=== PATIENT | female | born 1995 | race Caucasian/White ===

== ENCOUNTER 2016-12-22 00:32 | Emergency (ER) | payer OTHER ==
[2016-12-22 00:49] VITALS: RESP 18; TEMP 97.9
[2016-12-22 01:59] LABS: Amorphous Sediment,Urine Occasional /hpf; Appearance,Urine Cloudy (Clear); Bilirubin,Urine Negative (Negative); Glucose,Urine (UA) Negative (Negative); Ketones,Urine Negative (Negative); Leukocyte Esterase,Urine Small (Negative); Mucus,Urine Rare /hpf; Nitrite,Urine Negative (Negative); PH, Urine 6.5 (5.0-8.0); Particle Count 15127; Protein,Urine Negative (Negative); RBC,Urine 92 /hpf (0-5); Specific Gravity,Urine 1.017 (1.001-1.035); Squamous Epithelial Cell,Urine <1 /hpf (0-4); UA Billing (MACRO vs. MICRO) MICRO; Urobilinogen,Urine <2.0 mg/dL (<2.0)
[2016-12-22] MEDS ORDERED: Rhogam IMMUNE GLOBULIN 1,500 UNIT/1 ML IM ONE (02:14)
--- NOTE | 2016-12-22 02:17 | ED ---
Female Urogenital HPI - General Chief complaint: Vaginal Bleeding Stated complaint: poss miscarriage,8wks Time Seen by Provider: 12/22/16 01:21 Source: patient, RN notes reviewed Mode of arrival: ambulatory Limitations: no limitations - History of Present Illness Initial comments: Patient is a 21-year-old female presents to the emergency room for evaluation of vaginal bleeding. Patient states she is about 8 weeks . Patient is . Patient states that she began with spotting about 2 days ago. Patient states she's been passing clots throughout the day today. Patient states that in bilateral lower abdominal cramping. Patient denies any nausea or vomiting. Patient states she's gone through 1 pad today. Patient denies fevers or chills. Patient denies chest pain or shortness of breath. Patient denies headache or dizziness. Patient states she does not have an OB appointment until the end of the month. - Related Data Home Medications Medication Instructions Recorded Confirmed No Known Home Medications [No 12/22/16 12/22/16 Known Home Medications] Allergies Allergy/AdvReac Type Severity Reaction Status Date / Time aloe vera Allergy Rash/Hives Verified 12/22/16 00:49 amoxicillin Allergy Rash/Hives Verified 12/22/16 00:49 latex Allergy Rash/Hives Verified 12/22/16 00:49 mint Allergy Rash/Hives Uncoded 12/22/16 00:49 Review of Systems ROS Statement: Those systems with pertinent positive or pertinent negative responses have been documented in the HPI. ROS Other: All systems not noted in ROS Statement are negative. Past Medical History Past Medical History: Asthma, GERD/Reflux Additional Past Medical History / Comment(s): anxiety History of Any Multi-Drug Resistant Organisms: None Reported Past Surgical History: Adenoidectomy, Ear Surgery Additional Past Surgical History / Comment(s): Kidney biopsy; Tubes in ears Past Anesthesia/Blood Transfusion Reactions: No Reported Reaction Past Psychological History: Anxiety, Bipolar Smoking Status: Never smoker Past Alcohol Use History: Occasional Past Drug Use History: None Reported - Past Family History Mother Family Medical History: Cancer (Breast), Thyroid Disorder General Exam - General Exam Comments Initial Comments: laying in exam room, no acute distress. Limitations: no limitations General appearance: alert, in no apparent distress Head exam: Present: atraumatic, normocephalic, normal inspection Eye exam: Present: normal appearance ENT exam: Present: normal exam Neck exam: Present: normal inspection Respiratory exam: Present: normal lung sounds bilaterally. Absent: respiratory distress Cardiovascular Exam: Present: regular rate, normal rhythm, normal heart sounds GI/Abdominal exam: Present: soft, tenderness (RLQ/LLQ), normal bowel sounds. Absent: distended, guarding, rebound, rigid External exam: Present: normal external exam Speculum exam: Present: vaginal bleeding Extremities exam: Present: normal inspection Back exam: Present: normal inspection Neurological exam: Present: alert, oriented X3, CN II-XII intact, normal gait Psychiatric exam: Present: normal affect, normal mood Skin exam: Present: warm, dry, intact, normal color. Absent: rash Course Vital Signs 12/22/16 12/22/16 00:46 03:49 Temperature 97.9 F Pulse Rate 93 71 Respiratory 18 18 Rate Blood Pressure 131/75 121/64 O2 Sat by Pulse 100 Oximetry Medical Decision Making - Medical Decision Making Patient is a 21-year-old female since emergency room for evaluation of vaginal bleeding. Patient is . Serum beta-hCG 555. Ultrasound shows no intrauterine . Patient advised to return in 48 hours for repeat serum beta-hCG. Patient's blood type is O negative. Patient was given RhoGAM. Patient advised to follow-up with [employer] WORK[employer]. Patient states she understands everything that was discussed with her. Return parameters discussed. Case discussed with Dr. Licea. - Lab Data Lab Results 12/22/16 12/22/16 12/22/16 Range/Units 01:37 01:44 01:44 HCG, Quant 555.7 mIU/mL Urine Color Yellow Urine Appearance Cloudy H (Clear) Urine pH 6.5 (5.0-8.0) Ur Specific [place] 1.017 (1.001-1.035) Urine Protein Negative (Negative) Urine Glucose (UA) Negative (Negative) Urine Ketones Negative (Negative) Urine Blood Moderate H (Negative) Urine Nitrite Negative (Negative) Urine Bilirubin Negative (Negative) Urine Urobilinogen <2.0 (<2.0) mg/dL Ur Leukocyte Esterase Small H (Negative) Urine RBC 92 H (0-5) /hpf Ur Squamous Epith Cells <1 (0-4) /hpf Amorphous Sediment Occasional H (None) /hpf Urine Mucus Rare H (None) /hpf Blood Type O Negative Blood Type Recheck No Antibody Screen NEGATIVE - Radiology Data Radiology results: report reviewed, image reviewed Disposition Clinical Impression: Threatened Disposition: HOME SELF-CARE Condition: Good Instructions: Threatened Miscarriage (ED) Additional Instructions: Please return in 48 hours for repeat serum beta-hCG. Please follow-up with OB/ CONFERENCE AND EVENT ORGANISER. Refrain from heavy lifting or sexual intercourse for the next 7 days. If any new symptom arises or symptoms worsen, return to ER as soon as possible. Referrals: Yogi Thornton MD [Primary Care Provider] - 1-2 days Josey Darby DO [Doctor of Osteopathic Medicine] - 1-2 days Time of Disposition: 03:30
--- NOTE | 2016-12-22 03:25 | US ---
EXAM: US Pelvis Complete, Transabdominal CLINICAL HISTORY: Pain TECHNIQUE: Real-time transabdominal pelvic ultrasound (complete) with image documentation. COMPARISON: No relevant prior studies available. FINDINGS: Uterus/cervix: The uterus measures about 8.1 x 4.1 x 4.9 cm. Normal endometrial stripe thickness. No myometrial mass. Right ovary: Right ovary measures about 3.5 x 1.1 x 2.6 cm. Normal blood flow. Left ovary: Left ovary measures about 3 x 1.2 x 1.9 cm. Normal blood flow. Free fluid: No free fluid. Bladder: Unremarkable as visualized. Wall is normal thickness for degree of distention. IMPRESSION: Normal-appearing uterus and ovaries. No intrauterine .
[2016-12-22 03:53] VITALS: BP 121/64; PULSE 71
== END 2016-12-22 04:08 | disposition home or self-care (01) ==
LOC: EC 00:32
DX: O20.0 Threatened abortion (principal); Z88.0 Allergy status to penicillin; Z91.040 Latex allergy status; Z91.018 Allergy to other foods; Z3A.08 8 weeks gestation of pregnancy
CPT/HCPCS: 36415; 86900; 86901; 86850; 81001; 84702; 76801; 99284; 96372; 90384; J2791

== ENCOUNTER → 2016-12-23 | Outpatient (CLI) | payer OTHER | END | disposition home or self-care (01) | LOC: LABWHC1 13:40 | PROVIDERS: ATTEND Physician Assistant | DX: O20.0 Threatened abortion (principal); Z3A.00 Weeks of gestation of pregnancy not specified | CPT/HCPCS: 36415; 84702 ==

== ENCOUNTER 2017-02-08 06:30 | Emergency (ER) | payer OTHER ==
[2017-02-08 06:39] VITALS: RESP 18
[2017-02-08] MEDS ORDERED: SODIUM CHLORIDE 0.9% 1,000 ML IV STA (07:06)
[2017-02-08] MEDS ORDERED: ONDANSETRON 4 MG/2 ML VIAL IVP STA (07:06)
--- NOTE | 2017-02-08 07:06 | ED ---
Nausea/Vomiting/Diarrhea HPI - General Source: patient Mode of arrival: ambulatory Limitations: no limitations <Dalia Bernstein - Last Filed: 02/08/17 07:09> <Johnny Lam - Last Filed: 02/08/17 09:17> - General Chief complaint: Nausea/Vomiting/Diarrhea Stated complaint: vomiting,7 wks Time Seen by Provider: 02/08/17 06:41 - History of Present Illness Initial comments: [age] years old female, she is she thinks she is about 6 weeks complaining about intractable nausea and vomiting, abdominal pain, abdominal cramps in the lower back pain. This is her third . She denies any vaginal bleeding any vaginal spotting that she been she had some chills. Denies any headaches no Neck stiffness or chest pain or shortness of breath does complain about abdominal pain no frequency urgency dysuria. She denies any vaginal bleeding or spotting (Dalia Bernstein) - Related Data Home Medications Medication Instructions Recorded Confirmed Albuterol Inhaler [Ventolin Hfa 2 puff INHALATION RT-Q6H PRN 02/08/17 02/08/17 Inhaler] Pnv,Calcium 72/Iron/Folic Acid 1 tab PO DAILY 02/08/17 02/08/17 [ Plus Tablet] Previous Rx's Medication Instructions Recorded Ondansetron [Zofran] 4 mg PO Q8HR PRN #5 tab 02/08/17 Allergies Allergy/AdvReac Type Severity Reaction Status Date / Time aloe vera Allergy Rash/Hives Verified 02/08/17 08:01 amoxicillin Allergy Rash/Hives Verified 02/08/17 08:01 latex Allergy Rash/Hives Verified 02/08/17 08:01 mint Allergy Rash/Hives Uncoded 02/08/17 06:39 Review of Systems ROS Other: All systems not noted in ROS Statement are negative. <Dalia Bernstein - Last Filed: 02/08/17 07:09> ROS Other: All systems not noted in ROS Statement are negative. <Johnny Lam - Last Filed: 02/08/17 09:17> ROS Statement: Those systems with pertinent positive or pertinent negative responses have been documented in the HPI. Past Medical History Past Medical History: Asthma, GERD/Reflux Additional Past Medical History / Comment(s): anxiety History of Any Multi-Drug Resistant Organisms: None Reported Past Surgical History: Adenoidectomy, Ear Surgery Additional Past Surgical History / Comment(s): Kidney biopsy; Tubes in ears Past Anesthesia/Blood Transfusion Reactions: No Reported Reaction Past Psychological History: Anxiety, Bipolar Smoking Status: Never smoker Past Alcohol Use History: Occasional Past Drug Use History: None Reported - Past Family History Mother Family Medical History: Cancer (Breast), Thyroid Disorder <Dalia Bernstein - Last Filed: 02/08/17 07:09> General Exam Limitations: no limitations <Dalia Bernstein - Last Filed: 02/08/17 07:09> <Johnny Lam - Last Filed: 02/08/17 09:17> - General Exam Comments Initial Comments: General: The patient is awake and alert, in moderate distress Skin: Skin is warm and dry and no rashes or lesions are noted. Eye: Pupils are equal, round and reactive to light, extra-ocular movements are intact; there is normal conjunctiva bilaterally. Ears, nose, mouth and throat: There are moist mucous membranes and no oral lesions. Neck: The neck is supple, there is no tenderness or JVD. Cardiovascular: There is a regular rate and rhythm. No murmur, rub or gallop is appreciated. Respiratory: To auscultation bilateral, no wheezing no rhonchi no distress respiratory jacobsen noticed Gastrointestinal: Mildly tender in the epigastric area and left upper quadrant area Back: There is no tenderness to palpation in the midline. There is no obvious deformity. Musculoskeletal: Normal ROM, no tenderness, There is no pedal edema. There is no calf tenderness or swelling. No cords were appreciated. Neurological: CN II-XII intact, Cranial nerves III through XII are intact. There are no obvious motor or sensory deficits. Coordination appears grossly intact. Speech is normal. Psychiatric: Cooperative, appropriate mood & affect, normal judgment. (Dalia Bernstein) Course <Dalia Bernstein - Last Filed: 02/08/17 07:09> <Johnny Lam - Last Filed: 02/08/17 09:17> Vital Signs 02/08/17 02/08/17 02/08/17 06:34 08:39 08:41 Temperature 97.8 F 98.6 F Pulse Rate 90 76 Respiratory 18 18 Rate Blood Pressure 114/80 103/52 O2 Sat by Pulse 97 90 L Oximetry Patient be endorsed to morning shift after 7 AM (Dalia Bernstein) Medical Decision Making - Lab Data Result diagrams: 02/08/17 06:52 02/08/17 06:52 <Johnny Lam - Last Filed: 02/08/17 09:17> - Lab Data Lab Results 02/08/17 02/08/17 02/08/17 Range/Units 06:52 06:52 08:29 WBC 8.9 (3.8-10.6) k/uL RBC 4.46 (3.80-5.40) m/uL Hgb 13.9 (11.4-16.0) gm/dL Hct 38.9 (34.0-46.0) % MCV 87.1 (80.0-100.0) fL MCH 31.1 (25.0-35.0) pg MCHC 35.7 (31.0-37.0) g/dL RDW 13.6 (11.5-15.5) % Plt Count 269 (150-450) k/uL Neutrophils % 63 % Lymphocytes % 27 % Monocytes % 6 % Eosinophils % 2 % Basophils % 0 % Neutrophils # 5.6 (1.3-7.7) k/uL Lymphocytes # 2.4 (1.0-4.8) k/uL Monocytes # 0.6 (0-1.0) k/uL Eosinophils # 0.2 (0-0.7) k/uL Basophils # 0.0 (0-0.2) k/uL Sodium 140 (137-145) mmol/L Potassium 4.3 (3.5-5.1) mmol/L Chloride 106 (98-107) mmol/L Carbon Dioxide 23 (22-30) mmol/L Anion Gap 11 mmol/L BUN 7 (7-17) mg/dL Creatinine 0.60 (0.52-1.04) mg/dL Est GFR (MDRD) Af Amer >60 (>60 ml/min/1.73 sqM) Est GFR (MDRD) Non-Af >60 (>60 ml/min/1.73 sqM) Glucose 87 (74-99) mg/dL Calcium 9.3 (8.4-10.2) mg/dL Total Bilirubin 0.6 (0.2-1.3) mg/dL AST 12 L (14-36) U/L ALT 25 (9-52) U/L Alkaline Phosphatase 88 (38-126) U/L Total Protein 6.9 (6.3-8.2) g/dL Albumin 4.1 (3.5-5.0) g/dL Amylase 59 (30-110) U/L Lipase 55 (23-300) U/L Urine Color Light Yellow Urine Appearance Clear (Clear) Urine pH 6.5 (5.0-8.0) Ur Specific [place] 1.004 (1.001-1.035) Urine Protein Negative (Negative) Urine Glucose (UA) Negative (Negative) Urine Ketones Negative (Negative) Urine Blood Negative (Negative) Urine Nitrite Negative (Negative) Urine Bilirubin Negative (Negative) Urine Urobilinogen <2.0 (<2.0) mg/dL Ur Leukocyte Esterase Small H (Negative) Urine RBC 1 (0-5) /hpf Urine WBC 2 (0-5) /hpf Ur Squamous Epith Cells 1 (0-4) /hpf Urine Bacteria Occasional H (None) /hpf Urine Mucus Rare H (None) /hpf Urine HCG, Qual (Not Detectd) 02/08/17 Range/Units 08:29 WBC (3.8-10.6) k/uL RBC (3.80-5.40) m/uL Hgb (11.4-16.0) gm/dL Hct (34.0-46.0) % MCV (80.0-100.0) fL MCH (25.0-35.0) pg MCHC (31.0-37.0) g/dL RDW (11.5-15.5) % Plt Count (150-450) k/uL Neutrophils % % Lymphocytes % % Monocytes % % Eosinophils % % Basophils % % Neutrophils # (1.3-7.7) k/uL Lymphocytes # (1.0-4.8) k/uL Monocytes # (0-1.0) k/uL Eosinophils # (0-0.7) k/uL Basophils # (0-0.2) k/uL Sodium (137-145) mmol/L Potassium (3.5-5.1) mmol/L Chloride (98-107) mmol/L Carbon Dioxide (22-30) mmol/L Anion Gap mmol/L BUN (7-17) mg/dL Creatinine (0.52-1.04) mg/dL Est GFR (MDRD) Af Amer (>60 ml/min/1.73 sqM) Est GFR (MDRD) Non-Af (>60 ml/min/1.73 sqM) Glucose (74-99) mg/dL Calcium (8.4-10.2) mg/dL Total Bilirubin (0.2-1.3) mg/dL AST (14-36) U/L ALT (9-52) U/L Alkaline Phosphatase (38-126) U/L Total Protein (6.3-8.2) g/dL Albumin (3.5-5.0) g/dL Amylase (30-110) U/L Lipase (23-300) U/L Urine Color Urine Appearance (Clear) Urine pH (5.0-8.0) Ur Specific [place] (1.001-1.035) Urine Protein (Negative) Urine Glucose (UA) (Negative) Urine Ketones (Negative) Urine Blood (Negative) Urine Nitrite (Negative) Urine Bilirubin (Negative) Urine Urobilinogen (<2.0) mg/dL Ur Leukocyte Esterase (Negative) Urine RBC (0-5) /hpf Urine WBC (0-5) /hpf Ur Squamous Epith Cells (0-4) /hpf Urine Bacteria (None) /hpf Urine Mucus (None) /hpf Urine HCG, Qual Detected (Not Detectd) Disposition <Dalia Bernstein - Last Filed: 02/08/17 07:09> <Johnny Lam - Last Filed: 02/08/17 09:17> Clinical Impression: Hyperemesis Disposition: HOME SELF-CARE Condition: Good Instructions: Hyperemesis Gravidarum (ED) Prescriptions: Ondansetron [Zofran] 4 mg PO Q8HR PRN #5 tab PRN Reason: Nausea Referrals: Yogi Thornton MD [Primary Care Provider] - 1-2 days
[2017-02-08] MEDS ORDERED: FAMOTIDINE 20 MG/2 ML VIAL IV STA (07:07)
[2017-02-08 07:28] LABS: Lymphocytes # (A) 2.4 k/uL (1.0-4.8); Monocytes % (A) 6 %; RDW 13.6 % (11.5-15.5)
[2017-02-08 07:49] LABS: ALT 25 U/L (9-52); AST 12 U/L (14-36); Alkaline Phosphatase 88 U/L (38-126); Amylase 59 U/L (30-110); Anion Gap 11 mmol/L; Blood Urea Nitrogen 7 mg/dL (7-17); Calcium 9.3 mg/dL (8.4-10.2); Carbon Dioxide 23 mmol/L (22-30); Chloride 106 mmol/L (98-107); Glucose 87 mg/dL (74-99); Non-African American GFR(MDRD) >60 (>60 ml/min/1.73 sqM); Potassium 4.3 mmol/L (3.5-5.1); Sodium 140 mmol/L (137-145); Total Bilirubin 0.6 mg/dL (0.2-1.3); Total Protein 6.9 g/dL (6.3-8.2)
[2017-02-08] MEDS ORDERED: DEXTROSE 5%-0.9% NACL 1,000 ML IV SCH (08:00)
[2017-02-08 08:08] LABS: CH 31.1; CHCM 35.8; HDW 2.98; Luc % (Auto) 2; Mean Platelet Volume 7.9; WBC (Perox) 8.62
[2017-02-08 08:11] LABS: RBC 4.46 m/uL (3.80-5.40); WBC 8.9 k/uL (3.8-10.6)
[2017-02-08 08:12] LABS: HCT 38.9 % (34.0-46.0); HGB 13.9 gm/dL (11.4-16.0); MCV 87.1 fL (80.0-100.0)
[2017-02-08 08:13] LABS: MCH 31.1 pg (25.0-35.0)
[2017-02-08 08:14] LABS: MCHC 35.7 g/dL (31.0-37.0)
[2017-02-08 08:15] LABS: Neutrophils % (A) 63 %
[2017-02-08 08:16] LABS: Basophils % (A) 0 %; Eosinophils % (A) 2 %; Lymphocytes % (A) 27 %
[2017-02-08 08:17] LABS: Eosinophils # (A) 0.2 k/uL (0-0.7); Monocytes # (A) 0.6 k/uL (0-1.0); Neutrophils # (A) 5.6 k/uL (1.3-7.7)
--- NOTE | 2017-02-08 08:18 | US ---
EXAMINATION TYPE: US abdomen complete DATE OF EXAM: 02/08/2017 COMPARISON: NONE CLINICAL HISTORY: Pain. Nausea/vomiting EXAM MEASUREMENTS: Liver Length: 13.7 cm Gallbladder Wall: 0.2 cm CBD: 0.4 cm Spleen: 10.8 cm Right Kidney: 8.6 x 5.1 x 5.5 cm Left Kidney: 10.1 x 6.0 x 5.2 cm Pancreas: Obscured by bowel gas Liver: Scanned intercostally, appears homogeneous Gallbladder: wnl Evidence for sonographic Gispon's sign: no CBD: wnl Spleen: Measures 13.7 cm. Right Kidney: No hydronephrosis or masses seen Left Kidney: No hydronephrosis or masses seen Upper IVC: Obscured by overlying bowel gas Abd Aorta: Obscured by overlying bowel gas Essentially normal exam The liver is homogenous. The intrahepatic portion of the IVC and proximal abdominal aorta are within normal limits. There is no evidence of cholelithiasis. Common bile duct is unremarkable. The visu alized portions of the pancreas are homogenous. The spleen is unremarkable although prominent in siz e. Kidneys are symmetric and free of hydronephrosis. No renal lesions are seen. IMPRESSION: 1. No sonographic evidence of cholelithiasis or cholecystitis. 2. No evidence of hydronephrosis or nephrolithiasis. 3. Prominent size of the spleen approaching criteria for splenomegaly. 4. Partially obscured visualization of the IVC and aorta.
[2017-02-08] MEDS ORDERED: METOCLOPRAMIDE 5 MG/ML 2 ML VIAL IVP STA (08:35)
[2017-02-08 08:41] VITALS: BP 103/52; PULSE 76; TEMP 98.6
[2017-02-08 08:51] LABS: Appearance,Urine Clear (Clear); Bacteria,Urine Occasional /hpf; Bilirubin,Urine Negative (Negative); Glucose,Urine (UA) Negative (Negative); Ketones,Urine Negative (Negative); Leukocyte Esterase,Urine Small (Negative); Mucus,Urine Rare /hpf; Nitrite,Urine Negative (Negative); PH, Urine 6.5 (5.0-8.0); Particle Count 4579; Protein,Urine Negative (Negative); RBC,Urine 1 /hpf (0-5); Specific Gravity,Urine 1.004 (1.001-1.035); Squamous Epithelial Cell,Urine 1 /hpf (0-4); UA Billing (MACRO vs. MICRO) MICRO; Urobilinogen,Urine <2.0 mg/dL (<2.0); WBC,Urine 2 /hpf (0-5)
== END 2017-02-08 09:29 | disposition home or self-care (01) ==
LOC: EC 06:30
DX: O21.9 Vomiting of pregnancy, unspecified (principal); O99.89 Other specified diseases and conditions complicating pregnancy, childbirth and the puerperium; M54.5 Low back pain; R10.9 Unspecified abdominal pain; R68.83 Chills (without fever); Z79.899 Other long term (current) drug therapy; Z88.0 Allergy status to penicillin; Z91.018 Allergy to other foods; Z91.040 Latex allergy status; Z91.048 Other nonmedicinal substance allergy status; Z3A.01 Less than 8 weeks gestation of pregnancy
CPT/HCPCS: 99284; 96374; 96375 ×2; 96361 ×2; 36415; 80053; 82150; 83690; 85025; 81001; 81025; 84702; 76700; J2765; J2405

== ENCOUNTER 2017-03-16 14:24 | Emergency (ER) | payer OTHER ==
[2017-03-16 14:28] VITALS: RESP 18; TEMP 98.1
[2017-03-16] MEDS ORDERED: SODIUM CHLORIDE 0.9% 1,000 ML IV ONE (14:43)
[2017-03-16] MEDS ORDERED: PROMETHAZINE INJ 25 MG in SODIUM CHLORIDE 0.9% 50 ML IVPB STA (14:43)
--- NOTE | 2017-03-16 14:55 | ED ---
General Adult HPI - General Chief complaint: Syncope Stated complaint: syncope Time Seen by Provider: 03/16/17 14:28 Source: patient, EMS Mode of arrival: EMS Limitations: no limitations - History of Present Illness Initial comments: This is a 22-year-old female at 12 weeks estimated gestational age presents to the department for a fall and likely syncopal event. The patient states that she was at work and she bent over to pick something up off the floor and then all of a sudden just remembers waking up on the floor. This was not witnessed. She is unsure how long she was on the ground for. She states that she did feel lightheaded prior to this happening. The patient has been dealing with hyperemesis gravidarum and is currently on Phenergan and Zofran at home. She states that she has 18 episodes of emesis a day and has been fainting approximately 3 times a week during her first trimester. Her EXERCISE TEACHER has been giving her IV fluids while she goes into the office. She has not required any admission for this. The patient does admit to some abdominal pain and cramping however she states that this is been going on in her EXERCISE TEACHER is aware and has diagnosed her with a right-sided ovarian cyst. She denies any vaginal bleeding but does have a little bit of some discharge for which she stated she is being treated for a yeast infection by her EXERCISE TEACHER. These symptoms have not changed. She denies any shortness of breath or chest pain. She did feel little bit of palpitations after she woke up on the floor however this has resolved. She denies any headache. She does feel a bit nauseated however has not vomited since the fall. No other complaints. - Related Data Home Medications Medication Instructions Recorded Confirmed Albuterol Inhaler [Ventolin Hfa 2 puff INHALATION RT-Q6H PRN 02/08/17 03/16/17 Inhaler] Pnv,Calcium 72/Iron/Folic Acid 1 tab PO HS 02/08/17 03/16/17 [ Plus Tablet] Ondansetron [Zofran ODT] 4 mg PO Q8HR PRN 03/16/17 03/16/17 Promethazine Suppository 25 mg RECTAL Q6H PRN 03/16/17 03/16/17 [Phenergan] Allergies Allergy/AdvReac Type Severity Reaction Status Date / Time aloe vera Allergy Rash/Hives Verified 03/16/17 14:45 amoxicillin Allergy Rash/Hives Verified 03/16/17 14:45 latex Allergy Rash/Hives Verified 03/16/17 14:45 mint Allergy Rash/Hives Uncoded 03/16/17 14:28 Review of Systems ROS Statement: Those systems with pertinent positive or pertinent negative responses have been documented in the HPI. ROS Other: All systems not noted in ROS Statement are negative. Past Medical History Past Medical History: Asthma, GERD/Reflux Additional Past Medical History / Comment(s): anxiety History of Any Multi-Drug Resistant Organisms: None Reported Past Surgical History: Adenoidectomy, Ear Surgery Additional Past Surgical History / Comment(s): Kidney biopsy; Tubes in ears Past Anesthesia/Blood Transfusion Reactions: No Reported Reaction Past Psychological History: Anxiety, Bipolar Smoking Status: Never smoker Past Alcohol Use History: Occasional Past Drug Use History: None Reported - Past Family History Mother Family Medical History: Cancer (Breast), Thyroid Disorder General Exam - General Exam Comments Initial Comments: Constitutional: Awake alert Appears comfortable Head: Normocephalic atraumatic Eyes: no conjunctival injection No scleral icterus EOMI Neck: No JVD Supple Heart: Regular rate rhythm normal S1-S2 no murmurs Lungs: Clear to auscultation bilaterally No wheezing No rales Abdomen: Soft nondistended nontender Extremities: Non edematous DP pulses intact Radial pulses intact Neuro: A&Ox3 No focal neurologic deficits Psych: Appropriate mood and affect Limitations: no limitations Course Vital Signs 03/16/17 03/16/17 14:25 15:28 Temperature 98.1 F Pulse Rate 100 94 Respiratory 18 18 Rate Blood Pressure 139/79 127/62 O2 Sat by Pulse 98 98 Oximetry EKG Findings - EKG Comments: EKG Findings:: EKG showing normal sinus rhythm with a rate of 97. No abnormal ST segment changes or T-wave inversions. QTC is 421. Other intervals are normal. No ectopy. Medical Decision Making - Medical Decision Making This is a 22-year-old female presents emergency department for suspected syncopal event. EKG was reviewed and unremarkable. Blood work is also unremarkable. The patient has been having multiple episodes of vomiting and likely was dehydrated. She was given fluids and Phenergan and had improvement in her symptoms. She stated that she would want to go home. She is close follow-up with her EXERCISE TEACHER. Told that she can return at any time should worsening or changing symptoms. All questions were answered. - Lab Data Result diagrams: 03/16/17 14:35 03/16/17 14:35 Lab Results 03/16/17 03/16/17 03/16/17 Range/Units 14:35 14:35 15:22 WBC 9.3 (3.8-10.6) k/uL RBC 4.37 (3.80-5.40) m/uL Hgb 13.7 (11.4-16.0) gm/dL Hct 39.7 (34.0-46.0) % MCV 90.7 (80.0-100.0) fL MCH 31.3 (25.0-35.0) pg MCHC 34.5 (31.0-37.0) g/dL RDW 13.8 (11.5-15.5) % Plt Count 256 (150-450) k/uL Neutrophils % 70 % Lymphocytes % 20 % Monocytes % 7 % Eosinophils % 1 % Basophils % 0 % Neutrophils # 6.5 (1.3-7.7) k/uL Lymphocytes # 1.9 (1.0-4.8) k/uL Monocytes # 0.6 (0-1.0) k/uL Eosinophils # 0.1 (0-0.7) k/uL Basophils # 0.0 (0-0.2) k/uL Sodium 135 L (137-145) mmol/L Potassium 4.2 (3.5-5.1) mmol/L Chloride 102 (98-107) mmol/L Carbon Dioxide 23 (22-30) mmol/L Anion Gap 10 mmol/L BUN 7 (7-17) mg/dL Creatinine 0.54 (0.52-1.04) mg/dL Est GFR (MDRD) Af Amer >60 (>60 ml/min/1.73 sqM) Est GFR (MDRD) Non-Af >60 (>60 ml/min/1.73 sqM) Glucose 95 (74-99) mg/dL Calcium 9.3 (8.4-10.2) mg/dL Magnesium 1.7 (1.6-2.3) mg/dL Total Bilirubin 0.3 (0.2-1.3) mg/dL AST 13 L (14-36) U/L ALT 25 (9-52) U/L Alkaline Phosphatase 65 (38-126) U/L Total Protein 6.9 (6.3-8.2) g/dL Albumin 3.9 (3.5-5.0) g/dL Urine Color Yellow Urine Appearance Cloudy H (Clear) Urine pH 7.5 (5.0-8.0) Ur Specific [place] 1.011 (1.001-1.035) Urine Protein Negative (Negative) Urine Glucose (UA) Negative (Negative) Urine Ketones Negative (Negative) Urine Blood Negative (Negative) Urine Nitrite Negative (Negative) Urine Bilirubin Negative (Negative) Urine Urobilinogen <2.0 (<2.0) mg/dL Ur Leukocyte Esterase Negative (Negative) Urine WBC 2 (0-5) /hpf Ur Squamous Epith Cells 5 H (0-4) /hpf Urine Bacteria Rare H (None) /hpf Hyaline Casts 1 (0-2) /lpf Urine Mucus Rare H (None) /hpf Urine Yeast (Budding) Few H (None) /hpf Disposition Clinical Impression: Orthostatic syncope Disposition: HOME SELF-CARE Condition: Stable Instructions: Syncope (ED) Additional Instructions: Please make sure to drink plenty of fluids. Sports drinks with regular sugar is better for hyperemesis. Follow-up with her EXERCISE TEACHER. Referrals: Yogi Thornton MD [Primary Care Provider] - 1-2 days
[2017-03-16 15:17] LABS: Basophils % (A) 0 %; CH 32.7; CHCM 36.2; Eosinophils # (A) 0.1 k/uL (0-0.7); Eosinophils % (A) 1 %; HCT 39.7 % (34.0-46.0); HDW 2.75; HGB 13.7 gm/dL (11.4-16.0); Luc % (Auto) 2; Lymphocytes # (A) 1.9 k/uL (1.0-4.8); Lymphocytes % (A) 20 %; MCH 31.3 pg (25.0-35.0); MCHC 34.5 g/dL (31.0-37.0); MCV 90.7 fL (80.0-100.0); Mean Platelet Volume 8.4; Monocytes # (A) 0.6 k/uL (0-1.0); Monocytes % (A) 7 %; Neutrophils # (A) 6.5 k/uL (1.3-7.7); Neutrophils % (A) 70 %; RBC 4.37 m/uL (3.80-5.40); RDW 13.8 % (11.5-15.5); WBC 9.3 k/uL (3.8-10.6); WBC (Perox) 8.88
[2017-03-16 15:27] LABS: ALT 25 U/L (9-52); AST 13 U/L (14-36); Alkaline Phosphatase 65 U/L (38-126); Anion Gap 10 mmol/L; Blood Urea Nitrogen 7 mg/dL (7-17); Calcium 9.3 mg/dL (8.4-10.2); Carbon Dioxide 23 mmol/L (22-30); Chloride 102 mmol/L (98-107); Glucose 95 mg/dL (74-99); Magnesium 1.7 mg/dL (1.6-2.3); Non-African American GFR(MDRD) >60 (>60 ml/min/1.73 sqM); Potassium 4.2 mmol/L (3.5-5.1); Sodium 135 mmol/L (137-145); Total Bilirubin 0.3 mg/dL (0.2-1.3); Total Protein 6.9 g/dL (6.3-8.2)
[2017-03-16 15:29] VITALS: BP 127/62; PULSE 94
[2017-03-16 15:37] LABS: Appearance,Urine Cloudy (Clear); Bacteria,Urine Rare /hpf; Bilirubin,Urine Negative (Negative); Glucose,Urine (UA) Negative (Negative); Ketones,Urine Negative (Negative); Leukocyte Esterase,Urine Negative (Negative); Mucus,Urine Rare /hpf; Nitrite,Urine Negative (Negative); PH, Urine 7.5 (5.0-8.0); Particle Count 5230; Protein,Urine Negative (Negative); Specific Gravity,Urine 1.011 (1.001-1.035); Squamous Epithelial Cell,Urine 5 /hpf (0-4); UA Billing (MACRO vs. MICRO) MICRO; Urobilinogen,Urine <2.0 mg/dL (<2.0); WBC,Urine 2 /hpf (0-5)
== END 2017-03-16 16:03 | disposition home or self-care (01) ==
LOC: EC 14:24
DX: O26.891 Other specified pregnancy related conditions, first trimester (principal); R55 Syncope and collapse; Z88.0 Allergy status to penicillin; Z91.040 Latex allergy status; Z91.048 Other nonmedicinal substance allergy status; Z91.018 Allergy to other foods; Z3A.01 Less than 8 weeks gestation of pregnancy; Z79.899 Other long term (current) drug therapy
CPT/HCPCS: 36415; 93005; 80053; 83735; 85025; 81001; 99284; 96365; J2550

== ENCOUNTER 2017-09-30 01:50 | Inpatient (IN) | payer OTHER ==
[2017-09-30] MEDS ORDERED: METHYLERGONOVINE 0.2 MG/ML 1 ML AMP IM PRN (02:21)
[2017-09-30] MEDS ORDERED: TERBUTALINE 1 MG/ML VIAL SQ PRN (02:21)
[2017-09-30] MEDS ORDERED: LIDOCAINE 1% (PF) 10 MG/ML (30 ML SDV) SQ PRN (02:21)
[2017-09-30] MEDS ORDERED: CARBOPROST TROMETHAMINE 250 MCG/ML 1 ML AMP IM PRN (02:21)
[2017-09-30] MEDS ORDERED: OXYTOCIN 10 UNIT/ML 1 ML VIAL IM PRN (02:21)
[2017-09-30] MEDS ORDERED: OXYTOCIN 20 UNITS/1000 ML NS 1,000 ML IV SCH ×2 (02:30→17:15)
[2017-09-30 02:44] VITALS: BMI 34.0
[2017-09-30 02:59] LABS: Basophils % (A) 0 %; Eosinophils # (A) 0.1 k/uL (0-0.7); Eosinophils % (A) 1 %; HCT 32.4 % (34.0-46.0); HGB 10.7 gm/dL (11.4-16.0); Hypochromasia Slight; Lymphocytes # (A) 2.4 k/uL (1.0-4.8); Lymphocytes % (A) 28 %; MCV 78.8 fL (80.0-100.0); Mean Platelet Volume 9.2; Monocytes # (A) 0.8 k/uL (0-1.0); Monocytes % (A) 9 %; Neutrophils # (A) 4.9 k/uL (1.3-7.7); Neutrophils % (A) 56 %; Platelet Count 254 k/uL (150-450); Poikilocytosis Moderate; RBC 4.11 m/uL (3.80-5.40); RDW 15.1 % (11.5-15.5); WBC 8.6 k/uL (3.8-10.6)
[2017-09-30 03:11] LABS: ALT 11 U/L (9-52); AST 12 U/L (14-36); Blood Urea Nitrogen 13 mg/dL (7-17); LDH 448 U/L (313-618); Uric Acid 5.9 mg/dL (3.7-7.4)
[2017-09-30] MEDS: LACTATED RINGERS 1,000 ML IV SCH ×4 (03:25→19:57)
[2017-09-30 03:34] LABS: Appearance,Urine Clear (Clear); Bilirubin,Urine Negative (Negative); Blood,Urine Negative (Negative); Color,Urine Yellow; Glucose,Urine (UA) Negative (Negative); Ketones,Urine Negative (Negative); Leukocyte Esterase,Urine Negative (Negative); Nitrite,Urine Negative (Negative); PH, Urine 6.5 (5.0-8.0); Protein,Urine Trace (Negative); Specific Gravity,Urine 1.027 (1.001-1.035)
--- NOTE | 2017-09-30 07:19 | P.HPOB ---
History of Present Illness H&P Date: 09/30/17 Chief Complaint: Decreased movement This is a 22-year-old 3 para 1011 woman who presents at 40-3/7 weeks gestation complaining of decreased movement and irregular contractions. She has an estimated due date of 09/27/2017 based on LMP consistent with second trimester ultrasound. She denies vaginal bleeding or leakage of fluids but does report significantly decreased movement over the past 12-18 hours. Upon her initial presentation to labor and delivery triage she was noted to be hypertensive with blood pressures in the 150s over 90s. Her NST was not reactive however was reassuring. Based on her postdates status, elevated blood pressures and concerns for decreased movement she was therefore admitted for induction of labor. has been complicated by a history of TIA in 2017. She had a thorough evaluation at that time which was entirely negative and she has not continued to have any ongoing neurologic issues for treatment during this . Obstetric history: One term normal spontaneous vaginal delivery and 1 spontaneous miscarriage. No prior history of hypertension or preeclampsia. Laboratory data: Group B strep negative, blood type O-, rubella immune, VDRL nonreactive, hepatitis B surface antigen negative, HIV negative, glucose tolerance testing normal Review of Systems All systems: negative Constitutional: Denies chronic headaches Eyes: denies blurred vision Past Medical History Past Medical History: Asthma, GERD/Reflux Additional Past Medical History / Comment(s): anxiety History of Any Multi-Drug Resistant Organisms: None Reported Past Surgical History: Adenoidectomy, Ear Surgery Additional Past Surgical History / Comment(s): Kidney biopsy; Tubes in ears Past Anesthesia/Blood Transfusion Reactions: No Reported Reaction Past Psychological History: Anxiety, Bipolar Additional Psychological History / Comment(s): Hx of eating disorder; OCD Smoking Status: Never smoker Past Alcohol Use History: Occasional Past Drug Use History: None Reported - Past Family History Mother Family Medical History: Cancer, Thyroid Disorder Medications and Allergies Home Medications Medication Instructions Recorded Confirmed Type Albuterol Inhaler [Ventolin Hfa 2 puff INHALATION RT-Q6H PRN 02/08/17 09/30/17 History Inhaler] Allergies Allergy/AdvReac Type Severity Reaction Status Date / Time aloe vera Allergy Rash/Hives Verified 09/30/17 01:57 amoxicillin Allergy Anaphylaxis Verified 09/30/17 01:57 latex Allergy Rash/Hives Verified 09/30/17 01:57 mint Allergy Rash/Hives Uncoded 07/23/17 23:07 Exam - Vital Signs Vital signs: Vital Signs Temp Pulse Resp BP Pulse Ox 09/30/17 02:34 97.1 F L 105 H 19 153/90 97 09/30/17 02:15 97.1 F L 105 H 19 153/90 97 Intake and Output 09/29/17 09/30/17 09/30/17 22:59 06:59 14:59 Other: Weight 81.647 kg Upon my initial evaluation patient is resting comfortably in bed. She is visibly gravid female. HEENT exam is unremarkable. Breathing is unlabored and the heart is a regular rate and rhythm. The abdomen is gravid, soft and nontender with no upper quadrant pain. She has 1+ bilateral lower extremity edema and 2+ deep tendon reflexes. No clonus. On pelvic examination her cervix is a tight 3 cm, 50% effaced and the vertex in the -3 station. Patient declines artificial rupture of membranes. heart tones are overall reassuring by external monitoring and she is kya every 2- 3 minutes with Pitocin augmentation. Results Result Diagrams: 09/30/17 02:50 09/30/17 02:50 Abnormal Lab Results - Last 24 Hours (Table) 09/30/17 09/30/17 09/30/17 Range/Units 02:50 02:50 03:10 Hgb 10.7 L (11.4-16.0) gm/dL Hct 32.4 L (34.0-46.0) % MCV 78.8 L (80.0-100.0) fL Creatinine 0.50 L (0.52-1.04) mg/dL AST 12 L (14-36) U/L Urine Protein Trace H (Negative) Assessment and Plan (1) Post-dates Narrative/Plan: 22-year-old 3 para 1011 at 40-3/7 weeks gestation admitted on with decreased movement and elevated blood pressures for induction of labor. Pitocin has been initiated per protocol. Currently no signs or symptoms of preeclampsia otherwise. status is overall reassuring. I anticipate normal spontaneous vaginal delivery. Current Visit: Yes Status: Acute Code(s): O48.0 - POST-TERM SNOMED Code(s): 82767337 (2) induced hypertension Narrative/Plan: Blood pressures improved with bedrest. Preeclamptic labs within normal limits. Monitor blood pressures closely and treat as indicated. Current Visit: Yes Status: Acute Code(s): O13.9 - GESTATIONAL HTN W/O SIGNIFICANT PROTEINURIA, UNSP TRIMESTER SNOMED Code(s): 83368977 (3) Rh negative, maternal Current Visit: Yes Status: Acute Code(s): O09.899 - SUPERVISION OF OTHER HIGH RISK PREGNANCIES, UNSP TRIMESTER; Z67.91 - UNSPECIFIED BLOOD TYPE, RH NEGATIVE SNOMED Code(s): 598892817
[2017-09-30] MEDS: BUTORPHANOL 1 MG/ML 1 ML VIAL IV PRN ×2 (08:44→10:52)
[2017-09-30] MEDS ORDERED: SODIUM CHLORIDE 0.9% 100 ML BAG ONE (11:39)
[2017-09-30] MEDS ORDERED: BUPIVACAINE (PF) 0.25% 30 ML VIAL ONE (11:39)
[2017-09-30] MEDS ORDERED: fentaNYL (PF) 50 MCG/ML 5 ML AMP ONE (11:39)
[2017-09-30] MEDS ORDERED: BUPIVACAINE (PF) 0.25% 25 ML, fentaNYL (PF) 200 MCG in SODIUM CHLORIDE 0.9% 71 ML EPIDURAL ONE (11:59)
[2017-09-30] MEDS ORDERED: MORPHINE SULFATE (PF) 0.3 MG/0.3 ML SYR ONE (16:10)
[2017-09-30] MEDS ORDERED: ceFAZolin 1,000 MG VIAL ONE (16:10)
[2017-09-30] MEDS ORDERED: NALBUPHINE 10 MG/ML AMPUL ONE (16:10)
[2017-09-30] MEDS ORDERED: fentaNYL (PF) 50 MCG/ML 2 ML AMP ONE (16:10)
[2017-09-30] MEDS ORDERED: LACTATED RINGERS 1,000 ML BAG IV ONE (16:10)
[2017-09-30] MEDS ORDERED: OXYTOCIN 10 UNIT/ML 1 ML VIAL ONE (16:10)
[2017-09-30] MEDS ORDERED: ZOLPIDEM 5 MG TAB PO PRN (17:03)
[2017-09-30] MEDS ORDERED: SIMETHICONE 80 MG CHEWABLE PO PRN (17:03)
[2017-09-30] MEDS ORDERED: diphenhydrAMINE 50 MG/ML 1 ML VIAL IVP PRN ×2 (17:03)
[2017-09-30] MEDS ORDERED: ONDANSETRON 4 MG/2 ML VIAL IVP PRN (17:03)
[2017-09-30] MEDS ORDERED: ACETAMINOPHEN TAB 325 MG TAB PO PRN (17:03)
[2017-09-30] MEDS ORDERED: diphenhydrAMINE 50 MG CAP PO PRN (17:03)
[2017-09-30] MEDS ORDERED: NALOXONE 0.4 MG/ML 1 ML VIAL IV PRN (17:03)
[2017-09-30] MEDS ORDERED: METOCLOPRAMIDE 5 MG/ML 2 ML VIAL IVP PRN (17:03)
[2017-09-30] MEDS ORDERED: diphenhydrAMINE 25 MG CAP PO PRN (17:03)
--- NOTE | 2017-09-30 17:03 | P.OP ---
Date of Procedure: 09/30/17 Preoperative Diagnosis: Postdates Nonreassuring heart tones in the second stage Postoperative Diagnosis: Postdates Nonreassuring heart tones in the second stage Occiput posterior Nuchal cord 1 Procedure(s) Performed: Primary low transverse section Anesthesia: epidural Surgeon: Kylee Lima Driller And Reamer #1: Ian Ellis Estimated Blood Loss (ml): 700 IV fluids (ml): 800 Urine output (ml): 25 Pathology: other (Placenta) Condition: stable Disposition: floor Indications for Procedure: Repetitive deep variable heart rate decelerations with and without maternal effort in the second stage remote from delivery Operative Findings: Male infant in the occiput posterior position with a nuchal cord 1. Apgars of 8 at 1 minute and 9 at 5 minutes weighing 7 lbs. 15 oz., 3600 g. Intact, three- vessel cord placenta. There was some hematuria and bladder integrity was and assessed using sterile formula. No bladder leakage was appreciated. Description of Procedure: After the patient was met preoperatively and all questions were answered, she was taken to the operating room where epidural anesthetic was bolused without incident. She was then positioned, prepped and draped in the dorsal supine position with a leftward tilt. Simon catheter was in place. After anesthetic was confirmed adequate, a low transverse skin incision was made. This was carried down to the underlying fascia both sharply and with the electrocautery. The fascia was then incised in the midline and extended bilaterally with the Lawrence scissors. The superior aspect of the fascial incision was elevated and the underlying rectus muscles dissected off sharply and with the electrocautery. The inferior aspect of the fascial incision was also elevated and the underlying rectus muscles dissected off sharply. The muscles were adherent in the midline. These were bluntly and the peritoneum was tented up with hemostats. The peritoneum was entered sharply with the Metzenbaum scissors. The peritoneal incision was extended inferiorly and superiorly with good visualization of the bladder. The bladder blade was placed. The vesicouterine peritoneum was identified, tented up and entered sharply, the bladder flap was created both sharply and digitally. A low transverse uterine incision was then made sharply and carried down to the underlying amniotic membranes. Membranes were ruptured and clear fluid was noted. The uterine incision was extended bilaterally bluntly. The 's head was delivered from the incision without difficulty and was noted to be deeply engaged in the pelvis. Nuchal cord 1 was reduced.. The nose and mouth were bulb suctioned. The rest of the infant was delivered onto the field without difficulty. And cut and the was taken to the warmer. An intact , three-vessel cord placenta was then manually removed and the uterus was exteriorized. The uterus was cleared of all clot and debris. The uterine incision was delineated with Moody clamps. The uterine incision was then closed in a running locked fashion with 0 Vicryl suture. A second imbricating layer was placed. Additional [id number] sutures were placed where necessary along the incision for hemostasis. Gross hematuria was noted in the catheter at this time. Although there was no significant concern for bladder injury with the determined best to further explore as the 's head was deeply engaged in the maternal pelvis prior to delivery. The bladder was then infused with approximately 300 mL's of sterile milk. This did on May the bladder which was thoroughly inspected. No obvious leaks were noted. The bladder was then re-drained with a Simon catheter. The uterus was then returned to the abdomen and the gutters were cleared of all clot and debris. The uterine incision was reinspected and Bovie electrocautery was utilized were necessary for hemostasis. The fascial edges, peritoneal edges and rectus muscles were inspected and Bovie electrocautery utilized were necessary for hemostasis. The fascia was then closed in a running fashion with 0 Vicryl suture. The subcuticular tissue was copiously suction irrigated and Bovie electrocautery utilized were necessary for hemostasis. 3-0 Vicryl suture was utilized to reapproximate the subcuticular tissue. The skin was then closed in a subcutaneous fashion with 4-0 Vicryl suture. All counts reported to me as correct by the operating room staff at the end of the procedure. The patient received antibiotics preoperatively and Pitocin following cord clamp. Mother and infant were both transported from the room in stable condition.
[2017-09-30] MEDS ORDERED: CITRIC ACID-SODIUM CITRATE 15 ML CUP PO ONE (17:24)
[2017-09-30] MEDS: SENNOSIDES-DOCUSATE SODIUM 1 EACH TAB PO SCH (19:56)
[2017-09-30] MEDS: KETOROLAC 30 MG/ML 1 ML VIAL IVP PRN (19:56)
[2017-10-01] MEDS: KETOROLAC 30 MG/ML 1 ML VIAL IVP PRN ×3 (02:27→14:35)
[2017-10-01] MEDS: LACTATED RINGERS 1,000 ML IV SCH ×2 (03:32→03:33)
[2017-10-01 07:38] LABS: Basophils % (A) 0 %; Eosinophils % (A) 0 %; HCT 26.4 % (34.0-46.0); Hypochromasia Slight; Lymphocytes # (A) 1.6 k/uL (1.0-4.8); Lymphocytes % (A) 15 %; MCH 25.8 pg (25.0-35.0); MCHC 32.5 g/dL (31.0-37.0); MCV 79.5 fL (80.0-100.0); Mean Platelet Volume 11.6; Monocytes # (A) 0.7 k/uL (0-1.0); Monocytes % (A) 7 %; Neutrophils % (A) 76 %; Platelet Count 160 k/uL (150-450); Poikilocytosis Slight; RBC 3.32 m/uL (3.80-5.40); RDW 15.5 % (11.5-15.5); WBC 10.5 k/uL (3.8-10.6)
[2017-10-01 07:49] LABS: HGB 8.6 gm/dL (11.4-16.0)
[2017-10-01] MEDS: SENNOSIDES-DOCUSATE SODIUM 1 EACH TAB PO SCH ×2 (08:01→21:07)
--- NOTE | 2017-10-01 09:44 | P.PNOBGPC ---
Subjective - Subjective Principal diagnosis: Postop day 1 Patient reports: Reports appetite normal, Reports voiding normally, Reports pain well controlled, Reports ambulating normally, Denies dizzy ambulation, Denies nauseated : doing well, nursing well Objective - Vital Signs Latest vital signs: Vital Signs Temp Pulse Resp BP Pulse Ox 10/01/17 07:55 98.4 F 102 H 18 120/77 97 10/01/17 04:00 98.1 F 95 16 124/75 97 10/01/17 00:00 98.0 F 72 16 130/70 09/30/17 20:00 98.4 F 98 18 124/79 09/30/17 19:00 103 H 18 148/70 98 09/30/17 18:30 97 18 140/66 97 09/30/17 18:00 86 18 140/66 97 09/30/17 17:45 95 18 139/73 97 09/30/17 17:30 97 18 142/81 98 09/30/17 17:15 97 18 140/75 98 09/30/17 17:00 96.8 F L 114 H 17 128/40 98 Intake and Output 09/30/17 10/01/17 10/01/17 22:59 06:59 14:59 Intake Total 600 Output Total 400 670 Balance -400 -670 600 Intake: Oral 600 Output: Urine 400 670 - Exam Lungs: bilateral: normal Extremities: Present: edema Abdomen: Present: normal appearance, soft, tenderness Incision: Present: normal, dry, intact. Absent: erythematous Uterus: Present: normal, firm - Labs Labs: Abnormal Lab Results - Last 24 Hours (Table) 10/01/17 Range/Units 07:21 RBC 3.32 L (3.80-5.40) m/uL Hgb 8.6 L D (11.4-16.0) gm/dL Hct 26.4 L (34.0-46.0) % MCV 79.5 L (80.0-100.0) fL Neutrophils # 8.0 H (1.3-7.7) k/uL Assessment and Plan (1) Post-dates Current Visit: Yes Status: Acute Code(s): O48.0 - POST-TERM SNOMED Code(s): 48569591 (2) induced hypertension Current Visit: Yes Status: Acute Code(s): O13.9 - GESTATIONAL HTN W/O SIGNIFICANT PROTEINURIA, UNSP TRIMESTER SNOMED Code(s): 13769463 (3) Rh negative, maternal Current Visit: Yes Status: Acute Code(s): O09.899 - SUPERVISION OF OTHER HIGH RISK PREGNANCIES, UNSP TRIMESTER; Z67.91 - UNSPECIFIED BLOOD TYPE, RH NEGATIVE SNOMED Code(s): 877642082 (4) Non-reassuring heart rate or rhythm affecting management of fetus Current Visit: Yes Status: Acute Code(s): [id number] - SNOMED Code(s): 086507332 (5) Nuchal cord Current Visit: Yes Status: Acute Code(s): O69.82X0 - LABOR AND DEL COMP BY OTH CORD ENTANGLE, W/O COMPRSN, UNSP SNOMED Code(s): 124661146 (6) S/P section Current Visit: Yes Status: Acute Code(s): Z98.891 - HISTORY OF UTERINE SCAR FROM PREVIOUS SURGERY SNOMED Code(s): 593888421 Plan: Postop day 1 status post primary low transverse section for nonreassuring heart tones in the second stage of labor, occiput posterior and nuchal cord 1. She is recovering well. Tolerating a general diet and voiding with a Simon catheter out. Her blood pressures have been normal since delivery. Routine care. Possible discharge home tomorrow.
[2017-10-01] MEDS: IBUPROFEN 600 MG TAB PO PRN (21:06)
[2017-10-02] MEDS: IBUPROFEN 600 MG TAB PO PRN ×3 (02:39→13:55)
[2017-10-02 06:55] VITALS: PULSE 74
[2017-10-02] MEDS: SENNOSIDES-DOCUSATE SODIUM 1 EACH TAB PO SCH (08:10)
--- NOTE | 2017-10-02 12:13 | P.DS ---
Providers Date of admission: 09/30/17 02:21 Expected date of discharge: 10/02/17 Attending physician: Simon Hernandez Primary care physician: Stated None - Discharge Diagnosis(es) (1) S/P section Current Visit: Yes Status: Acute Hospital Course: The patient is a 22-year-old 3 para 1011 admitted at 40-3/7 weeks. She is admitted with some elevated blood pressures and, given her postdate status, was admitted for induction of labor. Her was otherwise essentially uncomplicated though she carries a history of a TIA of unknown origin in 2017. On labor and delivery, she had Pitocin started followed by artificial rupture of membranes. She made progress and had an epidural catheter placed for analgesia. While still relatively remote from delivery, she began to experience deep and repetitive variable decelerations leading to the diagnosis of nonreassuring status. She was taken to the operating room where she was delivered of a viable 7 lbs. 15 oz. baby boy with Apgars of 8 at 1 minute and 9 at 5 minutes. Her postoperative course was unremarkable with vital signs remaining stable and her temperature was afebrile throughout. Blood pressures were entirely within normal limits and the postoperative phase. She was deemed stable for discharge by day #2 was discharged home to follow-up in the office in 2 weeks for an incision check and 6 weeks routinely. Discharge instructions included calling for any significantly increased bleeding or foul- smelling lochia, significantly increased fever abdominal pain, perineal complaints, breast complaints, incisional complaints, or anything else that concerned her. She is additionally instructed to have nothing in the vagina for at least 6 weeks time and to abstain from any heavy lifting over the same period of time. She was last instructed to do no driving until off of all pain medications or 2 weeks' time, whichever came first. She understood all of her instructions and agrees to follow up as noted above. Discharge medications included a prescription for Tylenol 3, 1-2 by mouth every 6 hours when necessary pain, #30 dispensed with no refills. She was to alternate with over- the-counter analgesic pain medications. Additionally she was to continue vitamins as she has opted to breast-feed. Maternal blood type is O- and cord blood was sent for evaluation for the necessity of RhoGAM prior to discharge. Rubella status is immune. Procedures: #1. Pitocin induction #2. Artificial rupture of membranes #3. Epidural analgesia #4. Primary low-transverse section Patient Condition at Discharge: Stable Plan - Discharge Summary New Discharge Prescriptions: No Action Albuterol Inhaler [Ventolin Hfa Inhaler] 2 puff INHALATION RT-Q6H PRN PRN Reason: Shortness Of Breath Discharge Medication List Albuterol Inhaler [Ventolin Hfa Inhaler] 2 puff INHALATION RT-Q6H PRN 02/08/17 [ History] Follow up Appointment(s)/Referral(s): Simon Hernandez MD [STAFF PHYSICIAN] - 2 Weeks Patient Instructions/Handouts: Depression (GEN), Preeclampsia (DC), Preeclampsia and Eclampsia After Delivery (GEN), (DC) Discharge Disposition: HOME SELF-CARE
[2017-10-02 16:12] VITALS: BP 121/72; RESP 16; TEMP 97.4
== END 2017-10-02 16:55 | disposition home or self-care (01) | DRG 766 ==
LOC: FBPOP 01:50 → 4FBP 02:21
PROVIDERS: ADMIT Obstetrics & Gynecology; ATTEND Obstetrics & Gynecology
PROC: 10907ZC Drainage of Amniotic Fluid, Therapeutic from Products of Conception, Via Natural or Artificial Opening (ICD-10-PCS; 2017-09-30)
PROC: 3E033VJ Introduction of Other Hormone into Peripheral Vein, Percutaneous Approach (ICD-10-PCS; 2017-09-30)
PROC: 00HU33Z Insertion of Infusion Device into Spinal Canal, Percutaneous Approach (ICD-10-PCS; 2017-09-30)
PROC: 3E0R3NZ Introduction of Analgesics, Hypnotics, Sedatives into Spinal Canal, Percutaneous Approach (ICD-10-PCS; 2017-09-30)
PROC: 10D00Z1 Extraction of Products of Conception, Low, Open Approach (ICD-10-PCS; principal; 2017-09-30 16:18)
DX: O36.8130 Decreased fetal movements, third trimester, not applicable or unspecified (principal); F31.9 Bipolar disorder, unspecified; F42.9 Obsessive-compulsive disorder, unspecified; O99.344 Other mental disorders complicating childbirth; O48.0 Post-term pregnancy; O76 Abnormality in fetal heart rate and rhythm complicating labor and delivery; O99.52 Diseases of the respiratory system complicating childbirth; O69.81X0 Labor and delivery complicated by cord around neck, without compression, not applicable or unspecified; O13.4 Gestational [pregnancy-induced] hypertension without significant proteinuria, complicating childbirth; J45.909 Unspecified asthma, uncomplicated; Z86.59 Personal history of other mental and behavioral disorders; Z80.9 Family history of malignant neoplasm, unspecified; Z86.73 Personal history of transient ischemic attack (TIA), and cerebral infarction without residual deficits; Z37.0 Single live birth; Z3A.40 40 weeks gestation of pregnancy; Z83.49 Family history of other endocrine, nutritional and metabolic diseases; Z88.1 Allergy status to other antibiotic agents; Z91.040 Latex allergy status; Z91.018 Allergy to other foods; Z91.048 Other nonmedicinal substance allergy status; Z67.41 Type O blood, Rh negative
CPT/HCPCS: 59025; 81003; 82565; 83615; 84112; 84450; 84460; 84520; 84550; 85025; 88307; 99213

== ENCOUNTER → 2019-09-02 | Outpatient (CLI) | payer OTHER | END | disposition home or self-care (01) | DX: J09.X2 Influenza due to identified novel influenza A virus with other respiratory manifestations (principal) | CPT/HCPCS: 87502; U0002 ==

== ENCOUNTER → 2019-10-28 | Outpatient (CLI) | payer OTHER | END | disposition home or self-care (01) | LOC: LABWHC1 12:06 | PROVIDERS: ATTEND Pediatrics Pediatric Infectious Diseases | DX: U07.1 COVID-19 (principal) | CPT/HCPCS: 87635 ==

== ENCOUNTER → 2020-03-05 | Outpatient (CLI) | payer OTHER | END | disposition home or self-care (01) | LOC: LABWHC1 14:53 | PROVIDERS: ATTEND Pediatrics Pediatric Infectious Diseases | DX: Z03.818 Encounter for observation for suspected exposure to other biological agents ruled out (principal) | CPT/HCPCS: U0003; C9803 ==